=== PATIENT | female | born 2000 | race Caucasian/White ===

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

== ENCOUNTER 2022-09-01 20:19 | Emergency (ER) | payer SELFPAY ==
[2022-09-01] MEDS ORDERED: Ketorolac 30 MG/ML SDV IVPUSH STA (21:26)
[2022-09-01] MEDS ORDERED: Ondansetron 4 MG/2 ML SDV IVPUSH ONE (21:26)
[2022-09-01] MEDS ORDERED: Haloperidol Lactate 5 MG/ML SDV IM ONE (21:26)
[2022-09-01] MEDS ORDERED: Sodium Chloride 0.9% 1,000 ML IV ONE (21:26)
[2022-09-01] MEDS ORDERED: Acetaminophen/Butalbital/Caffeine 325-50-40 MG Tab PO ONE (23:04)
== END 2022-09-02 00:07 | disposition home or self-care (01) ==
LOC: JD.ED 20:19
DX: G44.209 Tension-type headache, unspecified, not intractable (principal); E66.9 Obesity, unspecified; Z68.35 Body mass index [BMI] 35.0-35.9, adult; Z86.16 Personal history of COVID-19
CPT/HCPCS: 70450; 96361; 96372; 96374; 96375; 99284; A9270; J1630; J1885; J2405; J7030

== ENCOUNTER 2023-07-11 21:32 | Emergency (ER) | payer SELFPAY ==
[2023-07-11 22:39] LABS: CORONAVIRUS COVID-19 NAA NEGATIVE (NEGATIVE); INFLUENZA A NAA NEGATIVE (NEGATIVE)
== END 2023-07-11 23:10 | disposition home or self-care (01) ==
LOC: JD.ED 21:32
DX: B34.9 Viral infection, unspecified (principal); E66.9 Obesity, unspecified; Z86.16 Personal history of COVID-19; Z68.30 Body mass index [BMI] 30.0-30.9, adult
CPT/HCPCS: 0240U; 87651; 99283; 99282